=== PATIENT | female | born 1995 | race Caucasian/White ===

== ENCOUNTER 2022-10-09 15:35 | Emergency (ER) | payer MEDICAID, SELFPAY ==
[2022-10-09 15:35] VITALS: BP 125/70; PULSE 73; RESP 18; TEMP 36.3; O2SAT 96
[2022-10-09 15:45] VITALS: O2SAT 96
--- NOTE | 2022-10-09 15:53 | ED.GENADULT ---
HPI - General Adult General Chief complaint: Upper Respiratory Infection Stated complaint: congestion Time Seen by Provider: 10/09/22 15:44 History of Present Illness HPI narrative: The patient is a 27-year-old woman who has history of asthma, on albuterol inhaler therapy, no other significant past medical history. For the last 2 days, she has had URI symptoms consisting of rhinorrhea, nasal congestion, myalgias, chills, diaphoresis, bilateral earache left more than right, but no fevers. She feels tired and weak. No cough of significance. No shortness of breath. No nausea or vomiting. No abdominal pain. No UTI symptoms. Has a 6-month-old son also has similar symptoms. Related Data Home Medications Medication Instructions Recorded Confirmed albuterol 90 mcg/actuation aerosol 90 mcg inhalation TID PRN Wheezing 10/09/22 10/09/22 inhaler Allergies Allergy/AdvReac Type Severity Reaction Status Date / Time No Known Allergies Allergy Verified 10/09/22 15:53 Review of Systems Review of Systems: All systems reviewed & are unremarkable except as noted in HPI and below Constitutional: Constitutional: Reports as per HPI, Reports no additional constitutional complaints, Denies chills, Denies excessive sweating, Reports fatigue, Denies fever(s), Denies headache(s) and Reports weakness Eyes: Eyes: Reports as per HPI, Reports no additional eye complaints, Denies change in vision and Denies photophobia ENT: Reports system reviewed and no additional complaints, except as documented, Reports as per HPI, Denies dysphagia, Denies vertigo, Denies dizziness, Denies headache(s), Denies lip swelling, Reports nasal congestion, Denies sore throat, Denies throat swelling and Denies tongue swelling Cardiovascular: Cardiovascular: Reports as per HPI, Reports no additional cardiovascular complaints, Denies chest pain, Denies syncope, Denies rapid heart rate and Denies dyspnea Respiratory: Respiratory: Reports as per HPI, Reports no additional respiratory complaints, Denies chest congestion, Denies cough, Denies dyspnea and Denies wheezing Gastrointestinal: Gastrointestinal: Reports as per HPI, Reports no additional gastrointestinal complaints, Denies abdominal pain, Denies constipation, Denies dysphagia, Denies diarrhea, Denies nausea and Denies vomiting Genitourinary: Genitourinary: Reports as per HPI, Denies hematuria, Denies urinary frequency, Denies dysuria, Denies urinary incontinence and Denies urinary urgency Musculoskeletal: Musculoskeletal: Reports no additional musculoskeletal complaints, Denies back pain, Reports myalgias, Denies arthralgias, Denies joint swelling and Denies numbness Integumentary/Breasts: Skin/Breast: Reports system reviewed and no additional complaints, except as docu, Denies pruritus, Denies erythema, Denies rash and Denies skin ulcer Neurologic: Reports system reviewed and no additional complaints, except as documented, Reports as per HPI, Denies confusion, Denies vertigo, Denies dizziness, Denies syncope, Denies headache(s), Denies focal weakness, Denies numbness and Reports weakness Psychiatric: Psychiatric: Reports as per HPI, Denies anxiety, Denies confusion, Denies depression, Denies homicidal ideation and Denies suicidal ideation Endocrine: Endocrine: Reports no additional endocrine complaints, Denies excessive sweating, Reports fatigue, Denies polydipsia and Denies polyuria Hematologic/Lymphatic: Hematologic/Lymphatic: Reports no additional hematologic/lymphatic complaints, Denies easy bleeding and Denies easy bruising Allergic/Immunologic: Allergic/Immunologic: Reports no additional allergic/immunologic complaints, Denies lip swelling, Denies throat swelling, Denies tongue swelling and Denies wheezing Exam Const: General: healthy appearing, no acute distress, alert and well nourished; No confusion or ill appearing Nutritional Appearance: well nourished Orientation/consciousness: patient oriented x3 and No co
[2022-10-09] MEDS: IPRATROPIUM 0.5 MG/ALBUTEROL SULFATE 2.5 MG AMPUL.NEB 3 ML INHALATION (16:07)
[2022-10-09 16:09] VITALS: PULSE 80; RESP 20; O2SAT 97
[2022-10-09 16:15] VITALS: PULSE 89; RESP 20
[2022-10-09 17:15] LABS: Strep Group A RT-PCR NOT DETECTED (Negative)
[2022-10-09 17:30] LABS: Influenza A QL RT-PCR Negative (Negative); Influenza B QL RT-PCR Positive (Negative); SARS-CoV-2 RNA PCR Negative (Negative)
[2022-10-09 17:33] LABS: RSV RNA, RT-PCR Negative (Negative)
[2022-10-09] MEDS: OSELTAMIVIR PHOSPHATE 75 MG CAPSULE PO (17:47)
[2022-10-09 17:55] VITALS: BP 122/78; PULSE 100; RESP 18; TEMP 37.6; O2SAT 94
== END 2022-10-09 17:56 | disposition home or self-care (01) ==
PROVIDERS: Emergency Provider Emergency Medicine
DX: J10.1 Influenza due to other identified influenza virus with other respiratory manifestations (principal); Z20.822 Contact with and (suspected) exposure to COVID-19
CPT/HCPCS: 87637; 87651; 94640; 99283; A9270